=== PATIENT | male | born 1960 | race Caucasian/White ===

== ENCOUNTER 2017-06-30 09:47 | Outpatient (CLI) | payer OTHER ==
--- NOTE | 2017-06-30 11:50 | Fluoroscopy Report ---
FLUOROSCOPY RETROGRADE URETHROGRAM History: Urethral stricture, BPH. Findings: 46 fluoroscopic images were captured. There is a smooth stricture in the midportion of the anterior urethra measuring approximately 2 cm in length. Stenosis is estimated at 75%. The remainder of the urethra is within normal limits. The prostatic urethra was also visualized and has an unremarkable appearance. Impression: Smooth stricture in the anterior urethra as outlined above.
== END 2017-06-30 09:48 | disposition home or self-care (01) ==
LOC: FLUORO 09:47
PROVIDERS: ATTEND Urology
DX: N35.8 Other urethral stricture (principal); N40.0 Benign prostatic hyperplasia without lower urinary tract symptoms
CPT/HCPCS: 51610; 74450; Q9967

== ENCOUNTER 2017-10-13 10:46 | Day surgery (SDC) | payer OTHER ==
[2017-10-13] MEDS ORDERED: ANCEF/STERILE WATER 2 GM/20 ML 2 GM/20 ML SYRINGE IV NR (11:00)
[2017-10-13] MEDS ORDERED: NACL BACTERIOSTATIC INFILTRATI ONE (11:38)
--- NOTE | 2017-10-13 12:17 | Anesthesia Consultation ---
Anesthesia Consult and Med Hx Date of service: 10/13/17 - Airway Anesthetic Teeth Evaluation: Good ROM Head & Neck: Adequate Mental/Hyoid Distance: Adequate Mallampati Class: Class II Intubation Access Assessment: Probably Good - Pulmonary Exam CTA: Yes - Cardiac Exam Cardiac Exam: RRR - Pre-Operative Health Status ASA Pre-Surgery Classification: ASA2 Proposed Anesthetic Plan: General - Pulmonary Hx Smoking: Yes (STOPPED X 15 YRS- 1/2PPD X 5 YRS) Hx Asthma: No Hx Sleep Apnea: No (CHERELLE PRE SCREEN HIGH RISK) - Cardiovascular System Hx Hypertension: (X 5 YRS) Hx Heart Attack/AMI: No - Central Nervous System Hx Seizures: No CVA: No - Gastrointestinal Hx Gastroesophageal Reflux Disease: No - Endocrine Hx Renal Disease: Yes Hx Non-Insulin Dependent Diabetes: Yes - Other Systems Hx Cancer: No Hx Obesity: Yes - Additional Comments Anesthesia Medical History Comments: NAC
[2017-10-13] MEDS ORDERED: NACL 0.9% 1000 ML 1,000 ML ONE (12:18)
--- NOTE | 2017-10-13 12:18 | Anesthesia Day of Surgery ---
Anesthesia Day of Surgery - Day of Surgery Patient Examined: Yes Patient H&P Reviewed: Yes Patient is NPO: Yes
[2017-10-13] MEDS ORDERED: DIPRIVAN 10 MG/ML IV ONE ×2 (12:37→13:09)
[2017-10-13] MEDS ORDERED: DILAUDID ONE (12:38)
[2017-10-13] MEDS ORDERED: XYLOCAINE MPF 2% ONE (12:56)
[2017-10-13] MEDS ORDERED: VERSED IV NR (13:00)
[2017-10-13] MEDS ORDERED: PEPCID IV NR (13:00)
[2017-10-13] MEDS ORDERED: NACL 0.9% 1000 ML 1,000 ML IV SCH (13:00)
[2017-10-13] MEDS ORDERED: ZOFRAN ONE (13:01)
[2017-10-13] MEDS ORDERED: WATER FOR IRRIG STERILE IR ONE ×2 (13:04)
[2017-10-13] MEDS ORDERED: NEO SYNEPHRINE/NS Syringe(OR USE) IV ONE (13:52)
--- NOTE | 2017-10-13 13:56 | Post Operative Note ---
Date of procedure: 10/13/17 Pre-op diagnosis: severe urethral stricture Post-op diagnosis: same Findings: severe stricture Procedure: urethral stricture Anesthesia: TWIN Surgeon: JUVENTINO BLANDON Estimated blood loss: none Pathology: none Condition: stable Disposition: PACU
--- NOTE | 2017-10-13 14:00 | Discharge Summary ---
Short Stay Discharge Plan Activity: other Weight Bearing Status: Full Weight Bearing Diet: regular Durable Medical Equipment Needed Upon Discharge: other (espitia ) Follow up with: OSCAR ELLIS MD [Primary Care Provider] - 7 Days JUVENTINO BLANDON MD [Staff Physician] - 14 Days
--- NOTE | 2017-10-13 14:08 | Operative Report ---
PREOPERATIVE DIAGNOSIS: Urethral stricture disease. POSTOPERATIVE DIAGNOSIS: Urethral stricture disease. PROCEDURE: Cystoscopy, direct vision internal urethrotomy. SURGEON: Herve Orozco MD ANESTHESIA: General. FINDINGS: This is a gentleman with history of stricture. We offered him a formal repair. All risks and complications were discussed. DESCRIPTION OF PROCEDURE: The patient brought to the operating room and placed on the operating table. Following induction of anesthesia, placed in lithotomy position, prepped and draped in usual sterile fashion. Cystourethroscopy showed a long penile urethral stricture. We could not get a scope even a 17 scope past the penile urethra anywhere near the membranous urethra. This measured at least 2-3 cm. At this point, we were able to get a wire to coil in the bladder and using the curved sounds, we opened that up. We used a DVIU to open up that area of persistent narrowing as well. There was absolutely no bleeding. Unfortunately, even with dilating to 20, there was no bleeding. The stricture measured at least 4-5 cm. At this point, once we had the 20-[place] sound in, we could not get a [place], 20 [place] or 18 [place] in. We then placed the dilator back in and took the wire out to put a stiffer wire in but for some reason, we could not get the wire antegrade through the open ended curved dilator. The wire would not go through, there might have been some debris within the curved sound, but we could not get it through. We left that for about 10 minutes. Once we took it out, cystoscopy was able to be done and we exchanged wires and placed a 16 [place]. The patient tolerated the procedure well. Cystogram showed a thickened bladder. No extravasation. There was no bleeding. Brought to recovery room, family notified, in stable condition. JOB# [id number] [facility]
[2017-10-13] MEDS ORDERED: ZOFRAN IV PRN (14:24)
[2017-10-13] MEDS ORDERED: MORPHINE IV PRN (14:24)
[2017-10-13] MEDS ORDERED: PERCOCET 5/325 PO PRN (14:24)
--- NOTE | 2017-10-13 14:28 | Post Anesthesia Evaluation ---
- Post Anesthesia Evaluation Patient Participated: Yes Airway Patent: Yes Stable Respiratory Function: Yes Temp > 96.8F: Yes Pain Manageable: Yes Adequeate Hydration: Yes Anesthesia Complications: No
--- NOTE | 2017-10-13 15:36 | Fluoroscopy Report ---
Static cystogram. History: Hematuria/urethral stricture. Findings: The bladder is normal in contour and size. There is no vesicoureteral reflux. Impression: Normal study.
[2017-10-13 17:11] VITALS: BP 109/71
== END 2017-10-13 16:08 | disposition home or self-care (01) ==
LOC: OR 10:46
PROVIDERS: ATTEND Urology
DX: N35.011 Post-traumatic bulbous urethral stricture (principal); N40.1 Benign prostatic hyperplasia with lower urinary tract symptoms; R35.0 Frequency of micturition; R39.15 Urgency of urination; R39.12 Poor urinary stream; N52.9 Male erectile dysfunction, unspecified; I10 Essential (primary) hypertension; E11.9 Type 2 diabetes mellitus without complications; E66.9 Obesity, unspecified; Z68.33 Body mass index [BMI] 33.0-33.9, adult; Z87.891 Personal history of nicotine dependence
CPT/HCPCS: 52276; 74430; 82962; A4217; C1726; C1758; C1769; J0690; J1170; J2250; J2370; J2405; J2704; J7030; Q9967

== ENCOUNTER 2020-06-24 19:13 | Emergency (ER) | payer OTHER ==
[2020-06-24] MEDS ORDERED: EPINEPHrine 1 MG/10 ML SYRINGE ONE (19:20)
[2020-06-24] MEDS ORDERED: SODIUM BICARB 8.4% 50 MEQ/50 ML SYRINGE IV ONE (19:20)
[2020-06-24] MEDS ORDERED: AMIODARONE 150 MG/3 ML INJ IV ONE (19:20)
[2020-06-24] MEDS ORDERED: LACTATED RINGERS 1,000 ML ONE (19:29)
[2020-06-24] MEDS ORDERED: NORepinephrine/NS 4 MG-250 ML 4 MG/250 ML BAG IV SCH (19:29)
[2020-06-24] MEDS ORDERED: NORepinephrine/NS 4 MG-250 ML 4 MG/250 ML BAG IV ONE (19:29)
[2020-06-24] MEDS ORDERED: LACTATED RINGERS 1,000 ML IV ONE (19:29)
[2020-06-24] MEDS ORDERED: SODIUM CHLORIDE 0.9% 1000 ML 1,000 ML IV ONE (19:42)
[2020-06-24] MEDS ORDERED: SODIUM CHLORIDE 0.9% 1000 ML 1,000 ML ONE (19:42)
[2020-06-24 19:48] LABS: Basophils % (Auto) 0.2 % (0.0-1.8); Eosinophils # (Auto) 0.1 K/mm3 (0.0-0.4); Eosinophils % (Auto) 0.6 % (0.0-4.3); Hematocrit 39.9 % (35.5-45.6); Hemoglobin 13.3 gm/dl (11.8-15.2); Lymphocytes # (Auto) 3.7 K/mm3 (1.2-5.4); Lymphocytes % (Auto) 31.6 % (13.4-35.0); Mean Corpuscular HGB Conc 33 % (32-34); Mean Corpuscular Volume 97 fl (84-94); Monocytes # (Auto) 0.5 K/mm3 (0.0-0.8); Monocytes % (Auto) 4.5 % (0.0-7.3); Platelet Count 195 K/mm3 (140-440); Red Cell Distribution Width 14.9 % (13.2-15.2)
[2020-06-24 19:58] LABS: BUN/Creatinine Ratio 13; Blood Urea Nitrogen 15 mg/dL (9-20); Calcium 7.4 mg/dL (8.4-10.2); Hemolysis Index 22
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
[2020-06-24 20:02] LABS: INR 1.44 (0.87-1.13)
[2020-06-24 20:03] LABS: Partial Thromboplastin Time 36.6 Sec. (24.2-36.6)
[2020-06-24 20:14] LABS: ABG Base Excess -6.5 mmol/L (-2.0-3.0); ABG HCO3 18.1 mmol/L (20.0-26.0); ABG Methemoglobin 0.6 % (0.0-1.5); ABG Oxygen Saturation 99.6 % (95.0-99.0); ABG PCO2 33.3 mm Hg; ABG PH 7.353 pH Units (7.350-7.450)
[2020-06-24 20:19] LABS: ABG PO2 478.6 mm Hg (80.0-90.0)
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
[2020-06-24 21:20] VITALS: BP 138/83
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
== END 2020-06-24 21:26 | disposition other institution (70) ==
LOC: ED 19:13
DX: I46.9 Cardiac arrest, cause unspecified (principal); I10 Essential (primary) hypertension; Z87.891 Personal history of nicotine dependence; Z79.899 Other long term (current) drug therapy
CPT/HCPCS: 36415; 36556; 70450; 71045; 71260; 72020; 72125; 72170; 74177; 80048; 82803; 85025; 85610; 85730; 86850; 86900; 86901; 92950; 93005; 96360; 99291; J0171; J0282; J7030; J7120; Q9967; 94002